=== PATIENT | female | born 1970 | race Two or more races ===

== ENCOUNTER 2020-10-07 21:13 | Emergency (ER) | payer SELFPAY ==
[~2020-10-07] VITALS: Ht 149.9 cm; Wt 101.2 kg
[~2020-10-07 21:13] MED LIST: HYDR-3237 PO; NAPR250T6 PO
[2020-10-07 21:37] VITALS: BP 158/89
--- NOTE | 2020-10-07 22:06 | NUR ---
PT AMB TO RESTROOM AT THIS TIME
--- NOTE | 2020-10-07 22:37 | NUR ---
PT TO US AT THIS TIME VIA [facility]
[2020-10-07 22:39] LABS: BASOPHILS % (AUTO) 1 % (0-1); EOSINOPHILS % (AUTO) 2 % (1-7); LYMPHOCYTES % (AUTO) 27 % (22-44); MEAN CORPUSCULAR HEMOGLOBIN 29.8 pg (27.0-34.8); MEAN CORPUSCULAR HGB CONC 32.7 g/dL (32.4-35.8); MEAN PLATELET VOLUME 8.7 fL (7.4-10.4); MONOCYTES % (AUTO) 6 % (2-9); NEUTROPHILS % (AUTO) 65 % (42-75); PLATELET COUNT 305 x10^3/uL (130-400); RED BLOOD COUNT 4.24 x10^6/uL (3.82-5.3); RED CELL DISTRIBUTION WIDTH 13.8 % (9.6-15.2)
[2020-10-07 22:48] LABS: ALANINE AMINOTRANSFERASE 26 U/L (12-78); ALBUMIN 3.4 g/dL (3.4-5.0); ANION GAP 6 mmol/L (5-15); CALCIUM 9.2 mg/dL (8.5-10.1); CHLORIDE 112 mmol/L (98-107); CREATININE 0.64 mg/dL (0.55-1.02)
--- NOTE | 2020-10-07 22:49 | NUR ---
PT BACK FROM US AT THIS TIME
[2020-10-07 22:53] LABS: ALKALINE PHOSPHATASE 149 U/L (45-117); BILIRUBIN,TOTAL 0.4 mg/dL (0.2-1.0); TOTAL PROTEIN 7.3 g/dL (6.4-8.2)
[2020-10-07 23:12] LABS: MD NO
== END 2020-10-08 00:52 | disposition home or self-care (01) ==
LOC: ED 22:21
DX: N93.8 Other specified abnormal uterine and vaginal bleeding (principal); R10.2 Pelvic and perineal pain; I10 Essential (primary) hypertension; E11.9 Type 2 diabetes mellitus without complications; Z87.891 Personal history of nicotine dependence
CPT/HCPCS: 36415; 76830; 80053; 83690; 84703; 85025; 99284

== ENCOUNTER 2021-04-24 14:31 | Observation (INO) | payer OTHER ==
[~2021-04-24] VITALS: Ht 149.9 cm; Wt 104.7 kg
[~2021-04-24 14:31] MED LIST changes: +NAPR-872 PO; -NAPR250T6 PO
--- NOTE | 2021-04-24 15:03 | NUR ---
PT HERE FOR C/O SOB SINCE THIS AM, PT REPORTS HX OF ASTHMA USED INHALER WITHOUT RELIEF. PT ON ALL MONITORS, SPO2 95% RA.
--- NOTE | 2021-04-24 15:48 | NUR ---
DR. FINN AT BEDSIDE FOR EVAL.
--- NOTE | 2021-04-24 15:56 | NUR ---
LAB AND XRAY AT BEDSIDE.
[2021-04-24] MEDS ORDERED: SODIUM CHLORIDE FLUSH 10ML SYR IVF ONE (16:00)
[2021-04-24 16:03] LABS: BASOPHILS % (AUTO) 1 % (0-1); EOSINOPHILS % (AUTO) 1 % (1-7); LYMPHOCYTES % (AUTO) 24 % (22-44); MEAN CORPUSCULAR HEMOGLOBIN 30.4 pg (27.0-34.8); MEAN CORPUSCULAR HGB CONC 33.6 g/dL (32.4-35.8); MONOCYTES % (AUTO) 5 % (2-9); NEUTROPHILS % (AUTO) 69 % (42-75); PLATELET COUNT 259 x10^3/uL (130-400); RED BLOOD COUNT 4.82 x10^6/uL (3.82-5.3); RED CELL DISTRIBUTION WIDTH 14.5 % (9.6-15.2)
[2021-04-24 16:06] LABS: MD NO
[2021-04-24 16:14] LABS: ALANINE AMINOTRANSFERASE 34 U/L (12-78); ALBUMIN 3.6 g/dL (3.4-5.0); ANION GAP 7 mmol/L (5-15); CALCIUM 8.4 mg/dL (8.5-10.1); CHLORIDE 113 mmol/L (98-107)
[2021-04-24 16:24] LABS: ALKALINE PHOSPHATASE 135 U/L (45-117); BILIRUBIN,TOTAL 0.7 mg/dL (0.2-1.0); TOTAL PROTEIN 7.4 g/dL (6.4-8.2); TROPONIN I < 0.015 ng/mL (0.000-0.045)
[2021-04-24] MEDS ORDERED: morphine SULFATE 10 MG/ML, 1ML IV PRN (18:00)
[2021-04-24] MEDS ORDERED: ACETAMINOPHEN 325 MG TABLET PO PRN (18:00)
[2021-04-24] MEDS ORDERED: ONDANSETRON 2MG/ML, 2ML IV PRN (18:00)
[2021-04-24 18:13] LABS: CHOLESTEROL, TOTAL 185 mg/dL (140-239); TRIGLYCERIDES 282 mg/dL (50-200); VLDL CHOLESTEROL 56 mg/dL (0-25)
--- NOTE | 2021-04-24 18:13 | NUR ---
DINAH RN: REPORT TO [facility], PLAN OF CARE DISCUSSED
[2021-04-24 18:21] LABS: CHOL/HDL RATIO 4.6; HDL CHOL % 22 % (28-40); HDL CHOLESTEROL (DIRECT) 40 mg/dL (40-60); LDL CHOLESTEROL,CALCULATED 89 mg/dL (54-169); LDL/HDL RATIO 2.2 (0.5-3.0); TROPONIN I < 0.015 ng/mL (0.000-0.045)
[2021-04-24 18:29] VITALS: BP 145/77
[2021-04-24] MEDS: INSULIN LISPRO 100 UNITS/ML, PEN SQ-INSULIN SCH (21:00)
[2021-04-24] MEDS: SODIUM CHLORIDE FLUSH 10ML SYR IVF SCH (21:00)
[2021-04-24] MEDS ORDERED: ASPI81TA59 PO (21:08)
[2021-04-24] MEDS ORDERED: AMLO-210 PO (21:15)
[2021-04-24] MEDS ORDERED: SIMV20TA19 PO (21:15)
[2021-04-24] MEDS ORDERED: SITA25TA PO (21:40)
[2021-04-24 23:47] LABS: TROPONIN I < 0.015 ng/mL (0.000-0.045)
[2021-04-25 01:11] VITALS: BP 142/85
[2021-04-25 05:20] LABS: ALBUMIN 3.4 g/dL (3.4-5.0); ANION GAP 7 mmol/L (5-15); CALCIUM 8.3 mg/dL (8.5-10.1); CHLORIDE 113 mmol/L (98-107)
[2021-04-25 05:27] LABS: ALANINE AMINOTRANSFERASE 28 U/L (12-78); ALKALINE PHOSPHATASE 121 U/L (45-117); BILIRUBIN,TOTAL 0.7 mg/dL (0.2-1.0); CREATININE 0.47 mg/dL (0.55-1.02); TOTAL PROTEIN 6.9 g/dL (6.4-8.2); TROPONIN I < 0.015 ng/mL (0.000-0.045)
[2021-04-25 06:39] VITALS: BP 115/75
[2021-04-25] MEDS: INSULIN LISPRO 100 UNITS/ML, PEN SQ-INSULIN SCH ×2 (07:00→11:00)
[2021-04-25] MEDS: SODIUM CHLORIDE FLUSH 10ML SYR IVF SCH (08:16)
[2021-04-25] MEDS ORDERED: [UNRECOGNIZED DRUG - CODE] INH (12:52)
[2021-04-25 14:22] VITALS: BP 99/60
== END 2021-04-25 16:59 | disposition home or self-care (01) ==
LOC: ED 15:15 → EDIP 17:00 → INTOOBSV 17:00 → 5SO 18:25 → DCLOUNGE 04-25 16:44
PROVIDERS: ADMIT Emergency Medicine; ATTEND Family Medicine
DX: R07.89 Other chest pain (principal); J45.909 Unspecified asthma, uncomplicated; E11.9 Type 2 diabetes mellitus without complications; I10 Essential (primary) hypertension; E66.9 Obesity, unspecified; E78.5 Hyperlipidemia, unspecified; Z68.42 Body mass index [BMI] 45.0-49.9, adult; Z87.891 Personal history of nicotine dependence; Z79.82 Long term (current) use of aspirin; Z79.899 Other long term (current) drug therapy
CPT/HCPCS: 36415; 71045; 80053; 80061; 82962; 83036; 83880; 84443; 84484; 85025; 85379; 93005; 93017; 99285; G0378